=== PATIENT | female | born 1945 | race Caucasian/White ===

== ENCOUNTER 2018-02-10 14:07 | Outpatient (CLI) | payer MEDICARE, OTHER, SELFPAY ==
--- NOTE | 2018-02-10 14:12 | DI.RAD.S_ITS ---
PROCEDURE: PAIN L/SI FACET INJ/BLK 1STL INDICATIONS: bilateral L4/5 L5 s1 FINDINGS: Fluoroscopic spot filming was performed to verify placement of spinal needles at the left and right L4-5 and left and right L5-S1 facet level(s), as labeled on the films. Appropriate location(s) of the needle tip(s) was confirmed by injection of iodinated contrast. IMPRESSION: Successful left L4-5 and left L5-S1 facet localization. Also, successful right L4-5 and right L5-S1 localization. Dictated by: Sumanth Ordaz M.D. on 02/10/2018 at 16:28 Approved by: Sumanth Ordaz M.D. on 02/10/2018 at 16:29
[2018-02-10 14:18] VITALS: BP 133/65; PULSE 66; RESP 18; TEMP 36.6; O2SAT 98
[2018-02-10 14:56] VITALS: BP 146/84; PULSE 75; O2SAT 97
--- NOTE | 2018-02-10 15:02 | PC.NURSE ---
no sedation per patient and Dr. Mukehrjee okayed that. pt tolerating procedure.
[2018-02-10 15:04] VITALS: BP 140/102; PULSE 65; O2SAT 95
[2018-02-10 15:20] VITALS: BP 150/80; PULSE 66; O2SAT 94
--- NOTE | 2018-02-10 15:31 | PM.PROC.1 ---
Procedures Date/Time Date of procedure: 02/10/18 Time of procedure: 15:31 General Procedure description: PREOP DIAGNOSIS 1. FACET ARTHROPATHY 2. AXIAL LBP 3. MULTILEVEL DDD POST OP DIAGNOSIS 1. FACET ARTHROPATHY 2. AXIAL LBP 3. MULTILEVEL DDD PROCEDURES 1. FLUORSCOPICALLY GUIDED CONTRAST CONTROLLED FACET JOINT INJECTIONS BILATERAL L4/5, L5/S1 PHYSICIAN: DO BRENDON Samano is referred by Dr. Del Rosario for treatment of Axial LBP FINDINGS Multilevel Facet Arthropathy with Clinically significant axial LBP DESCRIPTION OF PROCEDURE Fluoroscopically guided, contrast-controlled bilateral L4/5, L5/S1 facet joint injections. Following denial of allergy and review of potential side effects and complications, including, but not necessarily limited to, infection, allergic reaction, local tissue breakdown, stroke, temporary or permanent nerve injury, paralysis, and possible , the patient indicated that the patient understood and agreed to proceed. An informed consent document was signed by the patient, witnessed by a nurse, and placed in the patient's chart. Additionally, other treatment options including medications, modalities, and physical therapy were reviewed with the patient. In the prone position, following sterile prep and drape of the lumbar region, the posterior aspect of the L4/5, L5/S1 facet joints were identified fluoroscopically. The skin was anesthetized via a 25-gauge 1.5-inch needle with 1% lidocaine solution into the corresponding facet joints. At this point, a 22-gauge 3.5-inch spinal needle was atraumatically introduced and advanced under fluoroscopic guidance into the corresponding facet joints. Following negative aspiration, injections of approximately 0.2-cc of Isovue 200 confirmed interarticular placement without vascular uptake. The identical procedure was then performed at the L4/5, L5/S1 facet joints on the left. Radiological data, including multiple fluoroscopic views of the lumbosacral spine, reveal a spinal needle at the L4/5, L5/S1 facet joints bilaterally. Subsequent views show flow of contrast material both superiorly and inferiorly within the joint space without vascular or intrathecal uptake. At this point, a total of 0.5 cc including a mixture of 0.25 cc Marcaine and 0.25 cc betamethasone was injected without complication into each of the corresponding facet joints. The patient was then transferred to the recovery area where they were observed for an appropriate period of time after the injection. The patient reported a VAS score of 7 prior to the procedure and a post-procedure VAS of 0. Total Fluoroscopy Time: 20.3 seconds Total Conscious Sedation Time: 24min POST OP INSTRUCTIONS The patient was provided a Pain Log to continue to record their response to the target-specific procedure prior to follow-up visit with their referring physician. Additionally, specific post-injection care instructions and a contact number to our office were provided if concerns arise regarding possible complications associated with the procedure are suspected. Benjy Mukherjee DO Complications: none
[2018-02-10] MEDS: BUPIVACAINE 0.25% (PF) 30 ML VIAL 5 ML INJ (15:47)
[2018-02-10] MEDS: BETAMETHASONE 30 MG/5 ML MDV 24 MG INJ (15:47)
[2018-02-10] MEDS: LIDOCAINE 1% 20 ML INJ 10 ML INJ (15:48)
[2018-02-10] MEDS: IOPAMIDOL 15 ML VIAL INJ (15:54)
[2018-02-10] MEDS: methylPREDNISolone acetate 80 MG/ML VIAL INJ (15:54)
== END 2018-02-10 15:56 | disposition home or self-care (01) ==
PROVIDERS: Visit Provider Physical Medicine & Rehabilitation
DX: M47.816 Spondylosis without myelopathy or radiculopathy, lumbar region (principal); M46.96 Unspecified inflammatory spondylopathy, lumbar region
CPT/HCPCS: 64493; 64494; 64495; J0702; J1040

== ENCOUNTER 2018-04-06 12:34 | Outpatient (CLI) | payer MEDICARE, OTHER, SELFPAY ==
--- NOTE | 2018-04-06 12:36 | DI.RAD.S_ITS ---
PROCEDURE: PAIN L/SI FACET INJ/BLK 1STL INDICATIONS: Lumbar spinal stenosis FINDINGS: Fluoroscopic spot filming was performed to verify placement of spinal needles in the lumbar spine level(s), as labeled on the films. Appropriate location(s) of the needle tip(s) was confirmed by injection of iodinated contrast. IMPRESSION: Fluoroscopy guidance for needle placement. Dictated by: Ike Bullard M.D. on 04/06/2018 at 16:08 Approved by: Ike Bullard M.D. on 04/06/2018 at 16:09
[2018-04-06 13:00] VITALS: BP 112/68; PULSE 66; RESP 18; TEMP 36.1; O2SAT 97
--- NOTE | 2018-04-06 13:24 | PM.PROC.1 ---
Procedures Date/Time Date of procedure: 04/06/18 Time of procedure: 14:06 General Procedure description: POST OP DIAGNOSIS 1. FACET ARTHROPATHY PROCEDURES 1. BILATERAL- L4, L5 and S1 MB BLOCKS PHYSICIAN: DO BRENDON Samano is referred by for treatment of Bilateral Axial LBP. DESCRIPTION OF PROCEDURE Fluoroscopically guided, contrast-controlled bilateral L4, L5 and S1 medial branch blocks with 0.5cc of 0.5% Marcaine. Following denial of allergy and review of potential side effects and complications, including, but not necessarily limited to, infection, allergic reaction, local tissue breakdown, nerve injury, paralysis, stroke and possible , the patient indicated that the patient understood and agreed to proceed. An informed consent document was signed by the patient, witnessed by a nurse, and placed in the patient's chart. After review of previous anaesthesic history and IV conscious sedation the patient was deemed safe to proceed with todays procedure without IV conscious sedation as ASA class II designation. Safety time-out was performed to confirm patient ID, procedure to be performed and site of procedure. In the prone position, following sterile prep and drape of the lumbar region, the right L4, L5 and S1 anatomical location of the medial branch of the dorsal ramus was identified fluoroscopically. Subsequently an anesthetic skin wheal using 1% lidocaine solution was initiated at each of the anatomical spots. Subsequently then a 22-gauge 3.5-inch spinal needle was atraumatically introduced and advanced under fluoroscopic guidance at each of the corresponding sites at the right L4, L5 and S1 MB. After negative aspiration, 0.2 cc of Isovue 200 was injected, confirming placement without vascular or intrathecal uptake. Subsequently then 0.5 cc of 0.5% Marcaine solution was injected at each of the corresponding sites at the right L4, L5 and S1 medial branch locations. The identical procedure was replicated on the left. The procedure tolerated the procedure well without signs or symptoms of complications prior to transfer to the recovery area continued monitoring without incident. Post-procedure, the patient was monitored initiating provocative activities to measure the amount of relief from block of the facetogenic pain. The patient reported a VAS of 7 prior to the procedure and a post-procedure VAS of 1. It has been a pleasure to assist in the diagnostic and therapeutic care of your patient. Total Fluoroscopy Time: 24.8 seconds Total Conscious Sedation Time: 0min POST OP INSTRUCTIONS The patient was provided with a Pain Log to complete over the next several hours and subsequent days prior to the patient's follow up with the ordering physician. If the patient has financial planning consultant relief to the solution applied, then they may be a candidate for medial branch rhizotomy. The patient is aware, was provided, once again, with a Pain Log and will follow up with the referring physician for review and clinical correlation Benjy Mukherjee DO Complications: none
[2018-04-06 13:40] VITALS: BP 126/77; PULSE 96; RESP 18; O2SAT 96
[2018-04-06 13:44] VITALS: BP 131/73; PULSE 60; RESP 18; O2SAT 95
[2018-04-06] MEDS: BETAMETHASONE 30 MG/5 ML MDV 12 MG INJ (13:50)
[2018-04-06] MEDS: IOPAMIDOL 15 ML VIAL 3 ML INJ (13:50)
[2018-04-06] MEDS: LIDOCAINE 1% 20 ML INJ 10 ML INJ (13:50)
[2018-04-06 13:55] VITALS: BP 122/77; PULSE 66; RESP 16; O2SAT 96
[2018-04-06 13:59] VITALS: BP 133/84; PULSE 64; RESP 16; O2SAT 96
[2018-04-06 14:11] VITALS: BP 121/71; PULSE 60; RESP 18; O2SAT 98
== END 2018-04-06 15:10 | disposition home or self-care (01) ==
PROVIDERS: PCP Family Medicine; Visit Provider Physical Medicine & Rehabilitation
DX: M48.061 Spinal stenosis, lumbar region without neurogenic claudication (principal); M47.816 Spondylosis without myelopathy or radiculopathy, lumbar region
CPT/HCPCS: 64493; 64494; J0702; J2250

== ENCOUNTER 2018-04-27 13:38 | Outpatient (CLI) | payer MEDICARE, OTHER, SELFPAY ==
--- NOTE | 2018-04-27 13:42 | DI.RAD.S_ITS ---
PROCEDURE: PAIN L INTERLAMINAR/CAUDAL INJ INDICATIONS: Lumbar stenosis with bilateral lower extremity neurogenic cl FINDINGS: Fluoroscopic spot filming was performed to verify placement of spinal needles at the L3-4 level(s), as labeled on the films. Appropriate location(s) of the needle tip(s) was confirmed by injection of iodinated contrast. IMPRESSION: Intraoperative imaging for verification of needle placement at the L3-4 level. Dictated by: Juan Wills M.D. on 04/27/2018 at 16:02 Approved by: Juan Wills M.D. on 04/27/2018 at 16:03
[2018-04-27 14:30] VITALS: BP 126/70; PULSE 65; RESP 18; TEMP 36.8; O2SAT 95
[2018-04-27 14:58] VITALS: BP 149/77; PULSE 61; RESP 18; O2SAT 96
[2018-04-27 15:07] VITALS: BP 149/80; PULSE 69; RESP 16; O2SAT 96
[2018-04-27 15:09] VITALS: BP 150/92; PULSE 76; RESP 18; O2SAT 97
[2018-04-27] MEDS: IOPAMIDOL 15 ML VIAL 3 ML INJ (15:13)
[2018-04-27] MEDS: methylPREDNISolone acetate 80 MG/ML VIAL INJ (15:13)
[2018-04-27] MEDS: DEXAMETHASONE 10 MG/ML VIAL 20 MG INJ (15:13)
[2018-04-27] MEDS: BUPIVACAINE 0.25% (PF) VIAL 2 ML INJ (15:13)
[2018-04-27 15:25] VITALS: BP 132/75; PULSE 66; RESP 16; O2SAT 97
--- NOTE | 2018-04-27 15:34 | P.PCN_ITS ---
Procedures Date/Time Date of procedure: 04/27/18 Time of procedure: 15:32 General Procedure description: PROVIDER: Benjy Mukherjee DO Operative Note PREOP DIAGNOSIS 1. FORAMINAL STENOSIS WITH LE SYMPTOMS, POST OP DIAGNOSIS 1. FORAMINAL STENOSIS WITH LE SYMPTOMS, PROCEDURES 1. FLUOROSCOPICALLY GUIDED CONTRAST CONTROLLED TRANSFORAMINAL EPIDURAL STEROID INJECTION - LEFT L3/4 TFESI SURGEON: Benjy Mukherjee DO INDICATIONS Ravae is referred by Dr. Del Rosario for treatment of Foraminal Stenosis with left LE Symptoms FINDINGS Foraminal Nerve Root Compression secondary to disc disease and facet hypertrophy DESCRIPTION OF PROCEDURE Following denial of allergy and review of potential side effects and complications, including, but not necessarily limited to, infection, allergic reaction, local tissue breakdown, stroke, temporary or permanent nerve injury, paralysis, and possible , the patient indicated that the patient understood and agreed to proceed. An informed consent document was signed by the patient, witnessed by a nurse, and placed in the patient's chart. Additionally, other treatment options including medications, modalities, and physical therapy were reviewed with the patient. After review of previous anaesthesic history and IV conscious sedation the patient was deemed safe to proceed with todays procedure with IV conscious sedation as ASA class II designation. Safety time-out was performed to confirm patient ID, procedure to be performed and site of procedure. IV sedation was not administered by the RN after DO order, titrated to patient comfort during the course of the procedure while the patient remained responsive to all verbal commands In the prone position following sterile prep and drape of the lumbar region, the left L3/4 posterior neuroforamen was identified fluoroscopically. The skin was anesthetized via a 25-gauge 1.5-inch needle with 1% lidocaine solution. At this point, a 25-gauge 3.5-inch spinal needle was atraumatically introduced and advanced under fluoroscopic guidance through the posterior left L3/4 neuroforamen to approximately the anterior aspect of the canal. Depth was confirmed on lateral view. Following negative aspiration, injection of approximately 1.5 cc of Isovue 200 under live fluoroscopy in the AP view confirmed excellent flow along the nerve root, into the epidural space without vascular or intrathecal uptake observed Radiological data, including multiple fluoroscopic views of the lumbosacral spine, reveal a spinal needle at the left L3/4 posterior neuroforamen. Subsequent views show flow of contrast material flowing superiorly and inferiorly along the nerve root confirming epidural flow. Subsequently, a test dose of 1.5 cc of 1% lidocaine solution was administered and patient was observed for two minutes for signs or symptoms of complications , including abdominal pain, shortness of breath, bilateral upper or lower extremity weakness, nausea and vomiting, prior to steroid injection. At this point, a total of 3 cc or 20 mg of dexamethasone and 80mg Depo medrol was injected without incident. The procedure tolerated the procedure well without signs or symptoms of complications prior to transfer to the recovery area continued monitoring without incident. The patient was then transferred to the recovery area where they were observed for an appropriate time after the injection. The patient reported a VAS score of 7 prior to the procedure and a post-procedure VAS of 0. Total Fluoroscopy Time: 24.2 seconds Total Conscious Sedation Time: 0min POST OP INSTRUCTIONS The patient was provided a Pain Log to continue to record their response to the target-specific procedure prior to follow-up visit with their referring physician. Additionally, specific post-injection care instructions and a contact number to our office were provided if concerns arise regarding possible complications associated with the procedure are suspected. Benjy Mukherjee DO Complications: none
--- NOTE | 2018-04-28 17:42 | PC.NURSE ---
per Steve Walters her partner Brenda is doing well after her injection yesterday. She feels like she is standing up straighter. no adverse side effects.
== END 2018-04-27 16:05 | disposition home or self-care (01) ==
LOC: RAD 13:39
PROVIDERS: PCP Family Medicine; Visit Provider Physical Medicine & Rehabilitation
DX: M48.062 Spinal stenosis, lumbar region with neurogenic claudication (principal); M51.16 Intervertebral disc disorders with radiculopathy, lumbar region; M47.27 Other spondylosis with radiculopathy, lumbosacral region
CPT/HCPCS: 62323; 99213; J1040; J1100; J2250

== ENCOUNTER 2018-06-16 10:32 | Outpatient (CLI) | payer MEDICARE, OTHER, SELFPAY ==
[2018-06-16] VITALS (21 sets, daily range): BP systolic 100–123; BP diastolic 41–77; PULSE 60–72; RESP 16–20; TEMP 36.1; O2SAT 93–100
--- NOTE | 2018-06-16 10:34 | DI.RAD.S_ITS ---
PROCEDURE: PAIN L/S MED/LAT N RFA INDICATIONS: [id number], [id number] Bilateral L4,L5, S1 MB RFA FINDINGS: Fluoroscopic spot filming was performed to verify placement of spinal needles on the right at the superior L4, L5, and S1 levels. Appropriate location(s) of the needle tip(s) was confirmed by injection of iodinated contrast. Please correlate with intraprocedural findings. IMPRESSION: Intraprocedural examination within normal limits. Dictated by: Carmine Ma M.D. on 06/16/2018 at 17:09 Approved by: Carmine Ma M.D. on 06/16/2018 at 17:09
--- NOTE | 2018-06-16 10:58 | P.PCN_ITS ---
Procedures Date/Time Date of procedure: 06/16/18 Time of procedure: 10:56 General Procedure description: PREOP DIAGNOSIS 1. RECALCITRANT FACET ARTHROPATHY, POST OP DIAGNOSIS 1. RECALCITRANT FACET ARTHROPATHY PROCEDURES 1. BILATERAL L4 AND L5 MEDIAL BRANCH RADIOFREQUENCY NEUROTOMY AND S1 DORSAL RAMUS BRANCH RADIOFREQUENCY NEUROTOMY, PHYSICIAN: Benjy Mukherjee DO INDICATIONS: Brenda is referred by for treatment of facet arthropathy. DESCRIPTION OF PROCEDURE Right L4 and L5 medial branch radiofrequency neurotomy and right S1 dorsal ramus radiofrequency neurotomy under fluoroscopy with conscious sedation. The patient is well known to this clinic having undergone previous facet injections with good but temporary relief. The patient has experienced appropriate, concordant relief with previous facet and median branch blocks but the patient's pain has been recalcitrant to further conservative measures. Therefore, based upon the patient's relief and persistent symptoms, the patient is considered an appropriate candidate for facet rhizotomy. All of the patient' s questions regarding the risks versus benefits of the procedure, including, but not limited to, bleeding, infection, temporary as well as lasting nerve injury, paralysis, stroke, and , as well treatment alternatives were answered to satisfaction. After obtaining informed consent, denial of pertinent drug allergies, as well as being made aware of the potential risks of bleeding, infection, spinal cord trauma, paralysis, temporary and permanent nerve damage, seizure, stroke, and possible , the patient was brought to the fluoroscopy suite and positioned prone on the fluoroscopy table. The lumbar region was prepped with Betadine and covered with a fenestrated drape in the usual sterile fashion. Appropriate monitors applied including pulse oximeter, pulse, and blood pressure for regular monitoring throughout the procedure. After review of previous anaesthesic history and IV conscious sedation the patient was deemed safe to proceed with todays procedure with IV conscious sedation as ASA class II designation. Safety time-out was performed to confirm patient ID, procedure to be performed and site of procedure. IV sedation was accomplished with a combination of 5mg of Versed was administered by the RN after DO order, titrated to patient comfort during the course of the procedure while the patient remained responsive to all verbal commands. After local infiltration using 1% lidocaine, under fluoroscopic guidance, a 10- cm RF insulated needle with a 10-mm active tip was positioned parallel to the junction of the right sacral ala and the superior articulating process where the S1 dorsal ramus resides. Needle placement was confirmed with sensory stimulation at 50 Hz, with motor stimulation of .5v on the right which produced local stimulation without radicular component. The stimulation was then increased to 1.5v with, once again, only local multifidus stimulation without radicular component. This was then followed by two discreet lesions performed at 80 degrees Celsius for 90 seconds each. The needle was then removed and the identical procedure was performed along the length of the right L5 medial branch with motor stimulation at .7v on the right. The identical procedure was once again performed along the length of the right L4 medial branch with motor stimulation of .5v on the right. The identical procedure was repeated on the left. The patient tolerated the procedure well without signs or symptoms of complications prior to transfer to the recovery area continued monitoring without incident. The patient was then transferred to the recovery area where they were observed for an appropriate period of time after the injection. The patient reported a VAS score of 9 prior to the procedure and a post-procedure VAS of 0. Total Fluoroscopy Time: 22.7 seconds Total Conscious Sedation Time: 34min POST OP INSTRUCTIONS The patient was provided a Pain Log to continue to record the patient's response to the target-specific procedure prior to the patient's follow-up visit with the referring physician. Additionally, specific post-injection care instructions and a contact number to our office were provided if concerns arise regarding possible complications associated with the procedure are suspected. Benjy Mukherjee DO Complications: none
[2018-06-16] MEDS: MIDAZOLAM 5 MG/5 ML VIAL IV (11:38)
[2018-06-16] MEDS: IOPAMIDOL 15 ML VIAL 3 ML INJ (11:39)
[2018-06-16] MEDS: LIDOCAINE 1% 20 ML INJ 10 ML INJ (11:39)
[2018-06-16] MEDS: BUPIVACAINE 0.5% (PF) VIAL 5 ML INJ (11:40)
== END 2018-06-16 12:57 | disposition home or self-care (01) ==
PROVIDERS: PCP Family Medicine; Visit Provider Physical Medicine & Rehabilitation
DX: M47.816 Spondylosis without myelopathy or radiculopathy, lumbar region (principal)
CPT/HCPCS: 64635; 64636; 99152; 99153; J2250

== ENCOUNTER 2020-11-29 10:21 | Outpatient (CLI) | payer MEDICARE, OTHER, SELFPAY ==
[2020-11-29] VITALS (7 sets, daily range): BP systolic 92–121; BP diastolic 54–72; PULSE 64–80; RESP 15–64; TEMP 36.4; O2SAT 94–100
--- NOTE | 2020-11-29 10:24 | DI.RAD.S_ITS ---
PROCEDURE: PAIN L/S TRANSFORAMINAL INJECT INDICATIONS: SPONDYLOSIS COMPARISON: None. FINDINGS: Fluoroscopic spot filming was performed to verify placement of spinal needles at the left L3-4 level(s), as labeled on the films. Appropriate location(s) of the needle tip(s) was confirmed by injection of iodinated contrast. IMPRESSION: Fluoroscopic guidance for left L3-4 transforaminal epidural steroid injection. Please see procedural note for further details. Dictated by: Jimmy Watters M.D. on 11/29/2020 at 14:54 Approved by: Jimmy Watters M.D. on 11/29/2020 at 14:55
[2020-11-29] MEDS: MIDAZOLAM 5 MG/5 ML VIAL IV (10:52)
[2020-11-29] MEDS: fentaNYL 100 MCG/2 ML INJ 50 MCG IV (10:52)
[2020-11-29] MEDS: BUPIVACAINE 0.25% (PF) VIAL 2 ML INJ (10:56)
[2020-11-29] MEDS: IOPAMIDOL 15 ML VIAL 3 ML INJ (10:56)
[2020-11-29] MEDS: BETAMETHASONE 30 MG/5 ML MDV 6 MG INJ (10:57)
[2020-11-29] MEDS: DEXAMETHASONE 10 MG/ML VIAL 20 MG INJ (10:57)
--- NOTE | 2020-11-29 11:04 | P.PCN_ITS ---
Date/Time/Diagnoses Date of procedure: 11/29/20 Time of procedure: 11:04 Pre-procedure diagnosis: 1. FORAMINAL STENOSIS WITH LE SYMPTOMS Post-procedure diagnosis: same Procedure Notes Procedure: 1. FLUOROSCOPICALLY GUIDED CONTRAST CONTROLLED TRANSFORAMINAL EPIDURAL STEROID INJECTION - LEFT L3/4 TFESI Indications: Brenda is referred by Dr. Greco for treatment of Foraminal Stenosis with left LE Symptoms Physician: Benjy Mukherjee Total Fluoroscopy time (seconds): 7 Total sedation minutes: 9 Complications: none Procedure in detail & Post-procedure care: FINDINGS Foraminal Nerve Root Compression secondary to disc disease and facet hypertrophy DESCRIPTION OF PROCEDURE Following review of allergy and review of potential side effects and complications, including, but not necessarily limited to, infection, allergic reaction, local tissue breakdown, stroke, temporary or permanent nerve injury, paralysis, and possible , the patient indicated that the patient understood and agreed to proceed. An informed consent document was signed by the patient, witnessed by a nurse, and placed in the patient's chart. Additionally, other treatment options including medications, modalities, and physical therapy were reviewed with the patient. After review of previous anaesthesic history and IV conscious sedation the patient was deemed safe to proceed with today?s procedure with IV conscious sedation as ASA class II designation. Safety time-out was performed to confirm patient ID, procedure to be performed and site of procedure. IV sedation was accomplished with a combination of 2mg of Versed and 50mcg of Fentanyl was administered by the RN after DO order, titrated to patient comfort during the course of the procedure while the patient remained responsive to all verbal commands In the prone position following sterile prep and drape of the lumbar region, the left L3/4 posterior neuroforamen was identified fluoroscopically. The skin was anesthetized via a 25-gauge 1.5-inch needle with 1% lidocaine solution. At this point, a 25-gauge 3.5-inch spinal needle was atraumatically introduced and advanced under fluoroscopic guidance through the posterior left L3/4 neuroforam en to approximately the anterior aspect of the canal. Depth was confirmed on lateral view. Following negative aspiration, injection of approximately 1.5 cc of Isovue 200 under live fluoroscopy in the AP view confirmed excellent flow along the nerve root, into the epidural space without vascular or intrathecal uptake observed Radiological data, including multiple fluoroscopic views of the lumbosacral spine, reveal a spinal needle at the left L3/4 posterior neuroforamen. Subsequent views show flow of contrast material flowing superiorly and inferiorly along the nerve root confirming epidural flow. Subsequently, a test dose of 1.5cc of 1% lidocaine solution was administered and patient was observed for two minutes for signs or symptoms of complications, including abdominal pain, shortness of breath, bilateral upper or lower extremity weakness, nausea and vomiting, prior to steroid injection. At this point, a total of 3cc or 20mg of dexamethasone and 6mg betamethasone was injecte d without incident. The patient tolerated the procedure well without signs or symptoms of complications prior to transfer to the recovery area continued monitoring without incident. The patient was then transferred to the recovery area where they were observed for an appropriate time after the injection. The patient reported a VAS score of 7 prior to the procedure and a post-procedure VAS of 0. POST OP INSTRUCTIONS The patient was provided a Pain Log to continue to record their response to the target-specific procedure prior to follow-up visit with their referring physician. Additionally, specific post-injection care instructions and a contact number to our office were provided if concerns arise regarding possible complications associated with the procedure are suspected.
== END 2020-11-29 11:30 | disposition home or self-care (01) ==
PROVIDERS: PCP Family Medicine; Referring Provider Physical Medicine & Rehabilitation; Visit Provider Physical Medicine & Rehabilitation
DX: M48.062 Spinal stenosis, lumbar region with neurogenic claudication (principal); M51.16 Intervertebral disc disorders with radiculopathy, lumbar region
CPT/HCPCS: 64483; J0702; J1100; J2250; J3010

== ENCOUNTER 2023-06-09 10:23 | Outpatient (CLI) | payer MEDICARE, OTHER, SELFPAY ==
[2023-06-09] VITALS (12 sets, daily range): BP systolic 85–124; BP diastolic 51–71; PULSE 69–72; RESP 14–24; TEMP 35.9; O2SAT 95–98
--- NOTE | 2023-06-09 10:24 | DI.RAD.S_ITS ---
PROCEDURE: PAIN L/S TRANSFORAMINAL INJECT INDICATIONS: SPONDYLOSIS COMPARISON: [facility], , PAIN L/S TRANSFORAMINAL INJECT, 11/29/2020, 10:53. FINDINGS: Fluoroscopic spot filming was performed to verify placement of spinal needles on the left at the L3-L4 and L4-L5 levels, as labeled on the films. Appropriate location of the needle tips was confirmed by injection of iodinated contrast. IMPRESSION: Intraprocedural examination demonstrating appropriate positions of the needles. Dictated by: Carmine Ma M.D. on 06/09/2023 at 18:44 Approved by: Carmine Ma M.D. on 06/09/2023 at 18:44
[2023-06-09] MEDS: MIDAZOLAM 2 MG/2 ML VIAL IV (13:15)
[2023-06-09] MEDS: DEXAMETHASONE 10 MG/ML VIAL 20 MG INJ (13:22)
[2023-06-09] MEDS: BETAMETHASONE 30 MG/5 ML MDV 12 MG INJ (13:23)
[2023-06-09] MEDS: iopamidoL 15 ML VIAL 3 ML INJ (13:23)
[2023-06-09] MEDS: BUPIVACAINE 0.25% (PF) VIAL 2 ML INJ (13:24)
--- NOTE | 2023-06-09 13:42 | PM.PROC.IR.1 ---
Date/Time/Diagnoses Date of procedure: 06/09/23 Time of procedure: 13:42 Pre-procedure diagnosis: 1. FORAMINAL STENOSIS WITH LE SYMPTOMS Post-procedure diagnosis: same Procedure Notes Procedure: 1. FLUOROSCOPICALLY GUIDED CONTRAST CONTROLLED TRANSFORAMINAL EPIDURAL STEROID INJECTION - LEFT L3/4 TFESI Indications: Brenda is referred by Dr. Wheeler for treatment of Foraminal Stenosis with left LE Symptoms Physician: Benjy Mukherjee Total Fluoroscopy time (seconds): 17 Total sedation minutes: 20 Complications: none Procedure in detail & Post-procedure care: FINDINGS Foraminal Nerve Root Compression secondary to disc disease and facet hypertrophy DESCRIPTION OF PROCEDURE Following review of allergy and review of potential side effects and complications, including, but not necessarily limited to, infection, allergic reaction, local tissue breakdown, stroke, temporary or permanent nerve injury, paralysis, and possible , the patient indicated that the patient understood and agreed to proceed. An informed consent document was signed by the patient, witnessed by a nurse, and placed in the patient's chart. Additionally, other treatment options including medications, modalities, and physical therapy were reviewed with the patient. After review of previous anaesthesic history and IV conscious sedation the patient was deemed safe to proceed with today?s procedure with IV conscious sedation as ASA class II designation. Safety time-out was performed to confirm patient ID, procedure to be performed and site of procedure. IV sedation was accomplished with a combination of 2mg of Versed was administered by the RN after DO order, titrated to patient comfort during the course of the procedure while the patient remained responsive to all verbal commands In the prone position following sterile prep and drape of the lumbar region, the left L3/4 posterior neuroforamen was identified fluoroscopically. The skin was anesthetized via a 25-gauge 1.5-inch needle with 1% lidocaine solution. At this point, a 25-gauge 3.5-inch spinal needle was atraumatically introduced and advanced under fluoroscopic guidance through the posterior left L3/4 neuroforamen to approximately the anterior aspect of the canal. Depth was confirmed on lateral view. Following negative aspiration, injection of approximately 1.5 cc of Isovue 200 under live fluoroscopy in the AP view confirmed excellent flow along the nerve root, into the epidural space without vascular or intrathecal uptake observed Radiological data, including multiple fluoroscopic views of the lumbosacral spine, reveal a spinal needle at the left L3/4 posterior neuroforamen. Subsequent views show flow of contrast material flowing superiorly and inferiorly along the nerve root confirming epidural flow. Subsequently, a test dose of 1.5cc of 1% lidocaine solution was administered and patient was observed for two minutes for signs or symptoms of complications, including abdominal pain, shortness of breath, bilateral upper or lower extremity weakness, nausea and vomiting, prior to steroid injection. At this point, a total of 2cc or 10mg of dexamethasone and 6mg betamethasone was injected without incident. The patient tolerated the procedure well without signs or symptoms of complications prior to transfer to the recovery area continued monitoring without incident. The patient was then transferred to the recovery area where they were observed for an appropriate time after the injection. The patient reported a VAS score of 7 prior to the procedure and a post-procedure VAS of 0. POST OP INSTRUCTIONS The patient was provided a Pain Log to continue to record their response to the target-specific procedure prior to follow-up visit with their referring physician. Additionally, specific post-injection care instructions and a contact number to our office were provided if concerns arise regarding possible complications associated with the procedure are suspected.
--- NOTE | 2023-06-09 13:43 | PM.PROC.IR.1 ---
Date/Time/Diagnoses Date of procedure: 06/09/23 Time of procedure: 13:43 Pre-procedure diagnosis: 1. FORAMINAL STENOSIS WITH LE SYMPTOMS Post-procedure diagnosis: same Procedure Notes Procedure: 1. FLUOROSCOPICALLY GUIDED CONTRAST CONTROLLED TRANSFORAMINAL EPIDURAL STEROID INJECTION - LEFT L4/5 Indications: Brenda is referred by Dr. Wheeler for treatment of Foraminal Stenosis with Left LE Symptoms Physician: Benjy Mukherjee Total Fluoroscopy time (seconds): 17 Total sedation minutes: 20 Complications: none Procedure in detail & Post-procedure care: FINDINGS Foraminal Nerve Root Compression secondary to disc disease and facet hypertrophy DESCRIPTION OF PROCEDURE Following review of allergy and review of potential side effects and complications, including, but not necessarily limited to, infection, allergic reaction, local tissue breakdown, stroke, temporary or permanent nerve injury, paralysis, and possible , the patient indicated that the patient understood and agreed to proceed. An informed consent document was signed by the patient, witnessed by a nurse, and placed in the patient's chart. Additionally, other treatment options including medications, modalities, and physical therapy were reviewed with the patient. After review of previous anaesthesic history and IV conscious sedation the patient was deemed safe to proceed with today?s procedure with IV conscious sedation as ASA class II designation. Safety time-out was performed to confirm patient ID, procedure to be performed and site of procedure. IV sedation was accomplished with a combination of 2mg of Versed administered by the RN after DO order, titrated to patient comfort during the course of the procedure while the patient remained responsive to all verbal commands In the prone position following sterile prep and drape of the lumbar region, the left L4/5 posterior neuroforamen was identified fluoroscopically. The skin was anesthetized via a 25-gauge 1.5-inch needle with 1% lidocaine solution. At this point, a 25-gauge 3.5-inch spinal needle was atraumatically introduced and advanced under fluoroscopic guidance through the posterior left L4/5 neuroforamen to approximately the anterior aspect of the canal. Depth was confirmed on lateral view. Following negative aspiration, injection of approximately 1.5 cc of Isovue 200 under live fluoroscopy in the AP view confirmed excellent flow along the nerve root, into the epidural space without vascular or intrathecal uptake observed Radiological data, including multiple fluoroscopic views of the lumbosacral spine, reveal a spinal needle at the left L4/5 posterior neuroforamen. Subsequent views show flow of contrast material flowing superiorly and inferiorly along the nerve root confirming epidural flow. Subsequently, a test dose of 1.5 cc of 1% lidocaine solution was administered and patient was observed for two minutes for signs or symptoms of complications, including abdominal pain, shortness of breath, bilateral upper or lower extremity weakness, nausea and vomiting, prior to steroid injection. At this point, a total of 2cc or 10mg of dexamethasone and 6mg of betamethasone was injected without incident. The procedure tolerated the procedure well without signs or symptoms of complications prior to transfer to the recovery area continued monitoring without incident. The patient was then transferred to the recovery area where they were observed for an appropriate time after the injection. The patient reported a VAS score of 7 prior to the procedure and a post-procedure VAS of 0. POST OP INSTRUCTIONS The patient was provided a Pain Log to continue to record their response to the target-specific procedure prior to follow-up visit with their referring physician. Additionally, specific post-injection care instructions and a contact number to our office were provided if concerns arise regarding possible complications associated with the procedure are suspected.
--- NOTE | 2023-06-09 13:52 | PC.NURSE ---
Received patient post injection with LLE numbness. 2 person max assist from WC to recliner. Encouraged leg exercises. Patient hypotensive 85/51 (63). Dr. Mukherjee made aware. Patient is asymptomatic; awake, alert denies dizziness. Telemetry showing consistent pacing at 70 without changes. Care ongoing.
--- NOTE | 2023-06-09 14:23 | PC.NURSE ---
Patient has met post injection sedation recovery criteria for discharge. Numbness to BLE continues. Attempted a 2 person max assist stand at the chair side unsuccessfully. Patient buckled at the knees immediately. Assisted back into the recliner. Steve, patient's updated. Care ongoing.
--- NOTE | 2023-06-09 15:16 | PC.NURSE ---
Attempted to stand again with 2 person max assist. Unable to bear weight still. Assisted back to recliner. Care ongoing.
--- NOTE | 2023-06-09 15:40 | PC.NURSE ---
Patient able to stand and bear weight on BLE but still remains wobbly. Care ongoing.
--- NOTE | 2023-06-09 16:00 | PC.NURSE ---
Patient assisted to stand, steady. Able to take multiple steps without difficulty. Patient is taking the ferry back [place] and has plans to stay in her vehicle for the entire ride, set to arrive around 1809. Dr. Mukherjee witnessed mobility and gave the ok for discharge home.
== END 2023-06-09 16:02 | disposition home or self-care (01) ==
PROVIDERS: PCP Family Medicine; Referring Provider Physical Medicine & Rehabilitation; Visit Provider Physical Medicine & Rehabilitation
DX: M48.061 Spinal stenosis, lumbar region without neurogenic claudication (principal); M51.16 Intervertebral disc disorders with radiculopathy, lumbar region; M47.26 Other spondylosis with radiculopathy, lumbar region
CPT/HCPCS: 64483; 64484; 99152; J0702; J1100; J2250

== ENCOUNTER 2024-02-23 10:21 | Outpatient (CLI) | payer MEDICARE, OTHER, SELFPAY ==
[2024-02-23] VITALS (9 sets, daily range): BP systolic 89–113; BP diastolic 54–65; PULSE 69–70; RESP 15–20; TEMP 36.3; O2SAT 96–99
--- NOTE | 2024-02-23 11:15 | DI.RAD.S_ITS ---
PROCEDURE: PAIN L/S TRANSFORAMINAL INJECT INDICATIONS: Left L3-4 and L4-5 transforaminal MELANY COMPARISON: [facility], XR L-SPINE 4-6V, 11/01/2020, 12:05. Outside Facility, RG, CT LUMBAR SPINE, 12/30/2022, 10:01. Outside Facility, CT, CT LUMBAR MYELOGRAM, 08/07/2023, 13:35. FINDINGS: Fluoroscopic spot filming was performed to verify placement of spinal needles at the left L3-L4 and L4-L5 level(s), as labeled on the films. Appropriate location(s) of the needle tip(s) was confirmed by injection of iodinated contrast. IMPRESSION: Fluoroscopy for pain management. Dictated by: Ike Bullard M.D. on 02/23/2024 at 17:04 Approved by: Ike Bullard M.D. on 02/23/2024 at 17:05
[2024-02-23] MEDS: MIDAZOLAM 2 MG/2 ML VIAL IV (11:51)
[2024-02-23] MEDS: BUPIVACAINE 0.25% (PF) VIAL 2 ML INJ (11:54)
[2024-02-23] MEDS: BETAMETHASONE 30 MG/5 ML MDV 12 MG INJ (11:55)
[2024-02-23] MEDS: DEXAMETHASONE 10 MG/ML VIAL 20 MG INJ (11:55)
[2024-02-23] MEDS: iopamidoL 15 ML VIAL 3 ML INJ (11:55)
[2024-02-23] MEDS: SODIUM CHLORIDE 0.9% 500 ML 1000 ML IV (11:56)
--- NOTE | 2024-02-23 11:59 | PC.NURSE ---
patient's BP decreased to 89/54 at 1155. 500mL NaCL 0.9% IV started per VO from Dr. Mukherjee at 1156.
--- NOTE | 2024-02-23 12:17 | PM.PROC.IR.1 ---
Date/Time/Diagnoses Date of procedure: 02/23/24 Time of procedure: 12:17 Pre-procedure diagnosis: 1. FORAMINAL STENOSIS WITH LE SYMPTOMS Post-procedure diagnosis: same Procedure Notes Procedure: 1. FLUOROSCOPICALLY GUIDED CONTRAST CONTROLLED TRANSFORAMINAL EPIDURAL STEROID INJECTION - LEFT L4/5 Indications: Enedelia is referred by Dr. Abarca for treatment of Foraminal Stenosis with Left LE Symptoms Physician: Benjy Mukherjee Total Fluoroscopy time (seconds): 10 Total sedation minutes: 15 Complications: none Procedure in detail & Post-procedure care: FINDINGS Foraminal Nerve Root Compression secondary to disc disease and facet hypertrophy DESCRIPTION OF PROCEDURE Following review of allergy and review of potential side effects and complications, including, but not necessarily limited to, infection, allergic reaction, local tissue breakdown, stroke, temporary or permanent nerve injury, paralysis, and possible , the patient indicated that the patient understood and agreed to proceed. An informed consent document was signed by the patient, witnessed by a nurse, and placed in the patient's chart. Additionally, other treatment options including medications, modalities, and physical therapy were reviewed with the patient. After review of previous anaesthesic history and IV conscious sedation the patient was deemed safe to proceed with today?s procedure with IV conscious sedation as ASA class II designation. Safety time-out was performed to confirm patient ID, procedure to be performed and site of procedure. IV sedation was accomplished with a combination of 2mg of Versed administered by the RN after DO order, titrated to patient comfort during the course of the procedure while the patient remained responsive to all verbal commands In the prone position following sterile prep and drape of the lumbar region, the left L4/5 posterior neuroforamen was identified fluoroscopically. The skin was anesthetized via a 25-gauge 1.5-inch needle with 1% lidocaine solution. At this point, a 25-gauge 3.5-inch spinal needle was atraumatically introduced and advanced under fluoroscopic guidance through the posterior left L4/5 neuroforamen to approximately the anterior aspect of the canal. Depth was confirmed on lateral view. Following negative aspiration, injection of approximately 1.5 cc of Isovue 200 under live fluoroscopy in the AP view confirmed excellent flow along the nerve root, into the epidural space without vascular or intrathecal uptake observed Radiological data, including multiple fluoroscopic views of the lumbosacral spine, reveal a spinal needle at the left L4/5 posterior neuroforamen. Subsequent views show flow of contrast material flowing superiorly and inferiorly along the nerve root confirming epidural flow. Subsequently, a test dose of 1.5 cc of 1% lidocaine solution was administered and patient was observed for two minutes for signs or symptoms of complications, including abdominal pain, shortness of breath, bilateral upper or lower extremity weakness, nausea and vomiting, prior to steroid injection. At this point, a total of 2cc or 10mg of dexamethasone and 6mg of betamethasone was injected without incident. The procedure tolerated the procedure well without signs or symptoms of complications prior to transfer to the recovery area continued monitoring without incident. The patient was then transferred to the recovery area where they were observed for an appropriate time after the injection. The patient reported a VAS score of 7 prior to the procedure and a post-procedure VAS of 0. POST OP INSTRUCTIONS The patient was provided a Pain Log to continue to record their response to the target-specific procedure prior to follow-up visit with their referring physician. Additionally, specific post-injection care instructions and a contact number to our office were provided if concerns arise regarding possible complications associated with the procedure are suspected.
--- NOTE | 2024-02-23 12:18 | PM.PROC.IR.1 ---
Date/Time/Diagnoses Date of procedure: 02/23/24 Time of procedure: 12:18 Pre-procedure diagnosis: 1. FORAMINAL STENOSIS WITH LE SYMPTOMS Post-procedure diagnosis: same Procedure Notes Procedure: 1. FLUOROSCOPICALLY GUIDED CONTRAST CONTROLLED TRANSFORAMINAL EPIDURAL STEROID INJECTION - LEFT L3/4 TFESI Indications: Enedelia is referred by Dr. Abarca for treatment of Foraminal Stenosis with left LE Symptoms Physician: Benjy Mukherjee Total Fluoroscopy time (seconds): 10 Total sedation minutes: 15 Complications: none Procedure in detail & Post-procedure care: FINDINGS Foraminal Nerve Root Compression secondary to disc disease and facet hypertrophy DESCRIPTION OF PROCEDURE Following review of allergy and review of potential side effects and complications, including, but not necessarily limited to, infection, allergic reaction, local tissue breakdown, stroke, temporary or permanent nerve injury, paralysis, and possible , the patient indicated that the patient understood and agreed to proceed. An informed consent document was signed by the patient, witnessed by a nurse, and placed in the patient's chart. Additionally, other treatment options including medications, modalities, and physical therapy were reviewed with the patient. After review of previous anaesthesic history and IV conscious sedation the patient was deemed safe to proceed with today?s procedure with IV conscious sedation as ASA class II designation. Safety time-out was performed to confirm patient ID, procedure to be performed and site of procedure. IV sedation was accomplished with a combination of 2mg of Versed was administered by the RN after DO order, titrated to patient comfort during the course of the procedure while the patient remained responsive to all verbal commands In the prone position following sterile prep and drape of the lumbar region, the left L3/4 posterior neuroforamen was identified fluoroscopically. The skin was anesthetized via a 25-gauge 1.5-inch needle with 1% lidocaine solution. At this point, a 25-gauge 3.5-inch spinal needle was atraumatically introduced and advanced under fluoroscopic guidance through the posterior left L3/4 neuroforamen to approximately the anterior aspect of the canal. Depth was confirmed on lateral view. Following negative aspiration, injection of approximately 1.5 cc of Isovue 200 under live fluoroscopy in the AP view confirmed excellent flow along the nerve root, into the epidural space without vascular or intrathecal uptake observed Radiological data, including multiple fluoroscopic views of the lumbosacral spine, reveal a spinal needle at the left L3/4 posterior neuroforamen. Subsequent views show flow of contrast material flowing superiorly and inferiorly along the nerve root confirming epidural flow. Subsequently, a test dose of 1.5cc of 1% lidocaine solution was administered and patient was observed for two minutes for signs or symptoms of complications, including abdominal pain, shortness of breath, bilateral upper or lower extremity weakness, nausea and vomiting, prior to steroid injection. At this point, a total of 2cc or 10mg of dexamethasone and 6mg betamethasone was injected without incident. The patient tolerated the procedure well without signs or symptoms of complications prior to transfer to the recovery area continued monitoring without incident. The patient was then transferred to the recovery area where they were observed for an appropriate time after the injection. The patient reported a VAS score of 7 prior to the procedure and a post-procedure VAS of 0. POST OP INSTRUCTIONS The patient was provided a Pain Log to continue to record their response to the target-specific procedure prior to follow-up visit with their referring physician. Additionally, specific post-injection care instructions and a contact number to our office were provided if concerns arise regarding possible complications associated with the procedure are suspected.
--- NOTE | 2024-02-23 13:24 | PC.NURSE ---
Discharge Patient discharged home via wheelchair at 1315. Patient reports that feeling of numbness has resolved. Dr. Mukherjee at patient's chair side to assess patient strength. Patient able to stand up without assistance. Patient able to march in place while holding Dr. Mukherjee's hands. Patient reports some weakness to R leg. Patient stated that [facility]. Patient stated that she was ready to go home. Patient stated that she would remain in her vehicle on the ferry ride. Dr. Mukherjee gave verbal consent for patient to be released home via her POV with patient's 'Steve as patient's lifter/driver. This RN and radiological technologist payroll administrative assistant Rui helped patient to the bathroom with stand-by assist so patient could void prior to discharge.
== END 2024-02-23 13:20 | disposition home or self-care (01) ==
PROVIDERS: PCP Family Medicine; Referring Provider Physical Medicine & Rehabilitation; Visit Provider Physical Medicine & Rehabilitation
DX: M48.061 Spinal stenosis, lumbar region without neurogenic claudication (principal); M51.16 Intervertebral disc disorders with radiculopathy, lumbar region; M47.26 Other spondylosis with radiculopathy, lumbar region
CPT/HCPCS: 64483; 64484; 99152; J0702; J1100; J2250; J3490

== ENCOUNTER → 2024-05-30 09:58 | Outpatient (CLI) | payer MEDICARE, OTHER, SELFPAY ==
--- NOTE | 2024-05-30 09:59 | DI.RAD.S_ITS ---
PROCEDURE: XR LUMBAR SPINE MIN 4V INDICATIONS: BACK PAIN TECHNIQUE: 5 views of the lumbar spine were acquired, including bilateral oblique views. COMPARISON: None. FINDINGS: Bones: 5 nonrib-bearing vertebrae are present. Grade 1 anterolisthesis of L4 on L5 and L5 on S1. Severe disc height loss at all levels. Facet arthrosis L3 through S1.. No vertebral body compression fractures. No suspicious bony lesions. Soft tissues: Overlying bowel gas pattern is normal. No suspicious soft tissue calcifications. Oblique images: No pars defects. IMPRESSION: Severe, multilevel degenerative disc disease and lower lumbar facet arthrosis. Dictated by: Jomar Benton M.D. on 05/30/2024 at 11:58 Approved by: Jomar Benton M.D. on 05/30/2024 at 11:59
== END ==
PROVIDERS: PCP Family Medicine; Referring Provider Physical Medicine & Rehabilitation; Visit Provider Physical Medicine & Rehabilitation
DX: M47.27 Other spondylosis with radiculopathy, lumbosacral region (principal); M47.26 Other spondylosis with radiculopathy, lumbar region; M51.17 Intervertebral disc disorders with radiculopathy, lumbosacral region; M51.16 Intervertebral disc disorders with radiculopathy, lumbar region; M43.16 Spondylolisthesis, lumbar region; M43.17 Spondylolisthesis, lumbosacral region; M46.96 Unspecified inflammatory spondylopathy, lumbar region
CPT/HCPCS: 72110

== ENCOUNTER → 2024-06-30 12:05 | Outpatient (CLI) | payer MEDICARE, OTHER, SELFPAY | PROVIDERS: Family Provider Family Medicine; PCP Family Medicine; Referring Provider Physical Medicine & Rehabilitation; Visit Provider Physical Medicine & Rehabilitation | DX: M51.26 Other intervertebral disc displacement, lumbar region (principal); M47.27 Other spondylosis with radiculopathy, lumbosacral region | CPT/HCPCS: 95886; 95909 ==

== ENCOUNTER 2024-07-05 09:46 | Outpatient (CLI) | payer MEDICARE, OTHER, SELFPAY ==
[2024-07-05] VITALS (10 sets, daily range): BP systolic 82–120; BP diastolic 50–62; PULSE 69–72; RESP 16–19; TEMP 36.1; O2SAT 97–100
--- NOTE | 2024-07-05 10:15 | DI.RAD.S_ITS ---
PROCEDURE: PAIN L/S TRANSFORAM INJECT ATIF COMPARISON: [facility], CR, XR LUMBAR SPINE MIN 4V, 05/30/2024, 10:06. INDICATIONS: Bilateral L4-5 transforaminal MELANY FINDINGS: Fluoroscopic spot filming was performed to verify placement of spinal needles at the bilateral L4-5 level, as labeled on the films. Appropriate locations of the needle tips were confirmed by injection of iodinated contrast. IMPRESSION: Intraprocedural examination demonstrates appropriate needle positioning. Approved by: Mustapha Richard M.D. on 07/05/2024 at 21:39
[2024-07-05] MEDS: MIDAZOLAM 2 MG/2 ML VIAL IV (10:29)
[2024-07-05] MEDS: BUPIVACAINE 0.25% (PF) VIAL 2 ML INJ (10:36)
[2024-07-05] MEDS: iopamidoL 15 ML VIAL 3 ML INJ (10:36)
[2024-07-05] MEDS: DEXAMETHASONE 10 MG/ML VIAL 20 MG INJ (10:36)
[2024-07-05] MEDS: BETAMETHASONE 30 MG/5 ML MDV 12 MG INJ (10:37)
--- NOTE | 2024-07-05 10:56 | PM.PROC.IR.1 ---
Date/Time/Diagnoses Date of procedure: 07/05/24 Time of procedure: 10:56 Pre-procedure diagnosis: 1. FORAMINAL STENOSIS WITH LE SYMPTOMS Procedure Notes Procedure: 1. FLUOROSCOPICALLY GUIDED CONTRAST CONTROLLED TRANSFORAMINAL EPIDURAL STEROID INJECTION - BILATERAL L4/5 TFESI Indications: Enedelia is referred by Dr. Abarca for treatment of Foraminal Stenosis with bilateral LE Symptoms Physician: Benjy Mukherjee Total Fluoroscopy time (seconds): 27 Total sedation minutes: 23 Complications: none Procedure in detail & Post-procedure care: FINDINGS Foraminal Nerve Root Compression secondary to disc disease and facet hypertrophy DESCRIPTION OF PROCEDURE Following review of allergy and review of potential side effects and complications, including, but not necessarily limited to, infection, allergic reaction, local tissue breakdown, stroke, temporary or permanent nerve injury, paralysis, and possible , the patient indicated that the patient understood and agreed to proceed. An informed consent document was signed by the patient, witnessed by a nurse, and placed in the patient's chart. Additionally, other treatment options including medications, modalities, and physical therapy were reviewed with the patient. After review of previous anaesthesic history and IV conscious sedation the patient was deemed safe to proceed with today?s procedure with IV conscious sedation as ASA class II designation. Safety time-out was performed to confirm patient ID, procedure to be performed and site of procedure. IV sedation was accomplished with a combination of 2mg of Versed was administered by the RN after DO order, titrated to patient comfort during the course of the procedure while the patient remained responsive to all verbal commands In the prone position following sterile prep and drape of the lumbar region, the right L4/5 posterior neuroforamen was identified fluoroscopically. The skin was anesthetized via a 25-gauge 1.5-inch needle with 1% lidocaine solution. At this point, a 25-gauge 3.5-inch spinal needle was atraumatically introduced and advanced under fluoroscopic guidance through the posterior right L4/5 neuroforamen to approximately the anterior aspect of the canal. Depth was confirmed on lateral view. Following negative aspiration, injection of approximately 1.5cc of Isovue 200 under live fluoroscopy in the AP view confirmed excellent flow along the nerve root, into the epidural space without vascular or intrathecal uptake observed Radiological data, including multiple fluoroscopic views of the lumbosacral spine, reveal a spinal needle at the right L4/5 posterior neuroforamen. Subsequent views show flow of contrast material flowing superiorly and inferiorly along the nerve root confirming epidural flow. Subsequently, a test dose of 1.5cc of 1% lidocaine solution was administered and patient was observed for two minutes for signs or symptoms of complications, including abdominal pain, shortness of breath, bilateral upper or lower extremity weakness, nausea and vomiting, prior to steroid injection. At this point, a total of 2cc or 10mg of dexamethasone and 6mg betamethasone was injected without incident. Attention was then refocused to the left L4/5 level where the identical procedure was replicated. The procedure tolerated the procedure well without signs or symptoms of complications prior to transfer to the recovery area continued monitoring without incident. The patient was then transferred to the recovery area where they were observed for an appropriate time after the injection. The patient reported a VAS score of 7 prior to the procedure and a post-procedure VAS of 0. POST OP INSTRUCTIONS The patient was provided a Pain Log to continue to record their response to the target-specific procedure prior to follow-up visit with their referring physician. Additionally, specific post-injection care instructions and a contact number to our office were provided if concerns arise regarding possible complications associated with the procedure are suspected.
== END 2024-07-05 11:13 | disposition home or self-care (01) ==
PROVIDERS: Family Provider Family Medicine; PCP Family Medicine; Referring Provider Physical Medicine & Rehabilitation; Visit Provider Physical Medicine & Rehabilitation
DX: M48.061 Spinal stenosis, lumbar region without neurogenic claudication (principal); M51.16 Intervertebral disc disorders with radiculopathy, lumbar region; M47.26 Other spondylosis with radiculopathy, lumbar region
CPT/HCPCS: 64483; 99152; 99153; J0702; J1100; J2250; J3490